=== PATIENT | female | born 1995 | race Caucasian/White ===

== ENCOUNTER 2019-03-03 09:47 | Emergency (ER) | payer SELFPAY ==
[2019-03-03] MEDS ORDERED: Bupivacaine PF 0.5% 30 ML VIAL ONE (10:13)
== END 2019-03-03 10:36 | disposition home or self-care (01) ==
LOC: MADERS 09:47
DX: K04.7 Periapical abscess without sinus (principal); J45.909 Unspecified asthma, uncomplicated; F41.9 Anxiety disorder, unspecified; F32.9 Major depressive disorder, single episode, unspecified; F17.210 Nicotine dependence, cigarettes, uncomplicated
CPT/HCPCS: 64400; S0020